=== PATIENT | male | born 1950 | race American Indian/Alaskan Native ===

== ENCOUNTER 2019-06-23 09:37 | Emergency (ER) | payer MEDICARE ==
[2019-06-23] MEDS ORDERED: SODIUM CHLORIDE 0.9% 1000 ML 1,000 ML IV ONE (10:00)
[2019-06-23] MEDS ORDERED: IBUPROFEN ORAL LIQD 100 MG/5 ML ORAL.LIQD PO ONE (10:02)
--- NOTE | 2019-06-23 10:03 | Emergency Department Report ---
ED General Adult HPI - General Chief complaint: Pain General Stated complaint: PAIN Time Seen by Provider: 06/23/19 09:59 Source: patient, family, RN/MD, EMS Mode of arrival: Stretcher Limitations: Other - History of Present Illness Initial comments: Patient is a 68-year-old -[place] male who comes to the ER via EMS today. EMS states that his family called them out because the patient is complaining of generalized pain. However, the patient has denied pain to EMS the nurse and myself. Her EMS statements were made on scene that the family did not want the patient in the home because he had been incontinent and agitated. However, the patient has been completely cooperative both on scene and in the emergency room. EMS states that the family has been seeing somebody and equals landing to place the patient in a halfway. On arrival patient's vital signs are stable he is cooperative. He denies pain. He states that he is hungry. He is frail looks older than stated age and debilitated. Patient has a history of aphasia, dementia, hyperlipidemia and schizophrenia. Patient's primary care is Dr. Walton his phone number is [phone] Patient comes with a bag of medications including the following Vitamin D3 Atorvastatin Calcium Aspirin Valproic acid at night divalproex When reviewing patient's medications since found that there are numerous bottles of the same medications that seemingly are not being given to the patient. Given his dementia he would not be able to self medicate safely. There is no family at bedside for additional information. -: Gradual Severity scale (0 -10): 0 Worsens with: none Associated Symptoms: denies other symptoms Treatments Prior to Arrival: none - Related Data Allergies Allergy/AdvReac Type Severity Reaction Status Date / Time Unable to Assess Allergy Unverified 06/23/19 10:26 ED Review of Systems ROS: Stated complaint: PAIN Other details as noted in HPI Comment: Unobtainable due to pts medical conditions ED Past Medical Hx - Past Medical History Previous Medical History?: Yes Hx Dementia: Yes Additional medical history: hpl; schizo.; dementia - Family History Family history: no significant ED Physical Exam - General Limitations: Other General appearance: alert, in no apparent distress - Head Head exam: Present: atraumatic, normocephalic - Eye Eye exam: Present: normal appearance - ENT ENT exam: Present: mucous membranes dry - Neck Neck exam: Present: normal inspection - Respiratory Respiratory exam: Present: normal lung sounds bilaterally. Absent: respiratory distress - Cardiovascular Cardiovascular Exam: Present: regular rate, normal rhythm. Absent: systolic murmur, diastolic murmur, rubs, gallop - GI/Abdominal GI/Abdominal exam: Present: soft, normal bowel sounds - Rectal Rectal exam: Present: deferred - Extremities Exam Extremities exam: Present: normal inspection - Back Exam Back exam: Present: normal inspection - Neurological Exam Neurological exam: Present: alert - Psychiatric Psychiatric exam: Present: flat affect - Skin Skin exam: Present: warm, dry, intact, normal color. Absent: rash ED Course Vital Signs 06/23/19 06/23/19 06/23/19 09:48 09:52 12:54 Pulse Rate 69 69 84 Respiratory 13 12 17 Rate Blood Pressure 125/59 125/59 123/78 [Left] O2 Sat by Pulse 97 97 97 Oximetry ED Medical Decision Making - Lab Data Result diagrams: 06/23/19 10:37 06/23/19 10:37 - Medical Decision Making case management consulted for eval. Labs 06/23/19 06/23/19 06/23/19 10:37 10:37 10:37 WBC 6.1 RBC 5.81 H Hgb 14.1 Hct 43.5 MCV 75 L MCH 24 L MCHC 33 RDW 16.3 H Plt Count 120 L Add Manual Diff Complete Total Counted 100 Seg Neuts % (Manual) 80.0 H Band Neutrophils % 2.0 Lymphocytes % (Manual) 14.0 Reactive Lymphs % (Man) 0 Monocytes % (Manual) 4.0 Eosinophils % (Manual) 0 Basophils % (Manual) 0 Metamyelocytes % 0 Myelocytes % 0 Promyelocytes % 0 Blast Cells % 0 Nucleated RBC % Not Reportable Seg Neutrophils # Man 4.9 Band Neutrophils # 0.1 Lymphocytes # (Manual) 0.9 L Abs React Lymphs (Man) 0.0 Monocytes # (Manual) 0.2 Eosinophils # (Manual) 0.0 Basophils # (Manual) 0.0 Metamyelocytes # 0.0 Myelocytes # 0.0 Promyelocytes # 0.0 Blast Cells # 0.0 WBC Morphology Not Reportable Hypersegmented Neuts Not Reportable Hyposegmented Neuts Not Reportable Hypogranular Neuts Not Reportable Smudge Cells Not Reportable Toxic Granulation Not Reportable Toxic Vacuolation Not Reportable Dohle Bodies Not Reportable Pelger-Huet Anomaly Not Reportable Vikki Rods Not Reportable Platelet Estimate Consistent w auto Clumped Platelets Not Reportable Plt Clumps, EDTA Not Reportable Large Platelets Not Reportable Giant Platelets Not Reportable Platelet Satelliting Not Reportable Plt Morphology Comment Not Reportable RBC Morphology Not Reportable Dimorphic RBCs Not Reportable Polychromasia Not Reportable Hypochromasia Not Reportable Poikilocytosis Few Anisocytosis 1+ Microcytosis Not Reportable Macrocytosis Not Reportable Spherocytes Not Reportable Pappenheimer Bodies Not Reportable Sickle Cells Not Reportable Target Cells Rare Tear Drop Cells Not Reportable Ovalocytes Not Reportable Helmet Cells Not Reportable Alvarez-Miltona Bodies Not Reportable Coolspring Rings Not Reportable Nhi Cells Not Reportable Bite Cells Not Reportable Crenated Cell Not Reportable Elliptocytes Not Reportable Acanthocytes (Spur) 1+ Rouleaux Not Reportable Hemoglobin C Crystals Not Reportable Schistocytes Few Malaria parasites Not Reportable Jorge Bodies Not Reportable Hem Pathologist Commnt No Sodium 141 Potassium 5.0 Chloride 99.0 Carbon Dioxide 22 Anion Gap 25 BUN 40 H Creatinine 1.0 Estimated GFR > 60 BUN/Creatinine Ratio 40 Glucose 202 H Calcium 9.0 Total Bilirubin 0.90 AST 179 H ALT 329 H Alkaline Phosphatase 133 H Total Protein 6.7 Albumin 3.8 L Albumin/Globulin Ratio 1.3 Valproic Acid 78.2 Vital Signs 06/23/19 06/23/19 09:48 09:52 Pulse Rate 69 69 Respiratory 13 12 Rate Blood Pressure 125/59 125/59 [Left] O2 Sat by Pulse 97 97 Oximetry labs noted vss taking po denies pain reports being hungry case briefer has talked with family who cares for pt and is arranging home health. given med count I do not think pt is getting his home meds. dc home with family after education regarding his care. Critical care attestation.: If time is entered above; I have spent that time in minutes in the direct care of this critically ill patient, excluding procedure time. ED Disposition Clinical Impression: Dementia, Need for oncology social work intervention Disposition: DC-01 TO HOME OR SELFCARE Is pt being admited?: No Does the pt Need Aspirin: No Condition: Stable Instructions: Dementia (ED) Additional Instructions: FOLLOW UP WITH PCP REFERRAL BELOW TAKE SAFETY PRECAUTIONS AT HOME TO AVOID ACCIDENTAL HARM NEEDS MEAL SUPPLEMENTS DUE TO NUTRITION STATUS ENSURE BETWEEN HIS 3 MEALS WOULD BE GOOD A DAILY OVER THE COUNTER MULTIVITAMIN SHOULD BE GIVEN FOLLOW UP WITH RESOURCES PROVIDED BY [facility] CROPS TODAY KEEP PATIENT WELL HYDRATED Referrals: PRIMARY CARE, [Primary Care Provider] - 3-5 Days ELLIOTT LAZO MD [Staff Physician] - 3-5 Days Time of Disposition: 12:45
--- NOTE | 2019-06-23 10:46 | XRay Report ---
CHEST 1 VIEW INDICATION: pain. COMPARISON: None. FINDINGS: Support devices: None. Heart: Within normal limits. Pulmonary vasculature: Normal. Lungs/Pleura: No acute air space or interstitial disease. The lungs are hyperexpanded and hyperlucent . No pneumothorax. Additional findings: Pronounced tortuosity and/or ectasia of the ascending aorta. Extensive spondylos is of the thoracic spine. IMPRESSION: 1. No CHF or pneumonia. 2. Hypertensive changes in the ascending aorta and possible aneurysm of the ascending aorta. Conside r CTA chest. Signer Name: Dandy Bruce MD Signed: 06/23/2019 10:41 AM Workstation Name: [id number]
[2019-06-23 11:18] LABS: Hematocrit 43.5 % (35.5-45.6); Hemoglobin 14.1 gm/dl (11.8-15.2); Mean Corpuscular HGB Conc 33 % (32-34); Mean Corpuscular Volume 75 fl (84-94); Platelet Count 120 K/mm3 (140-440); Red Blood Count 5.81 M/mm3 (3.65-5.03); Red Cell Distribution Width 16.3 % (13.2-15.2)
[2019-06-23 11:34] LABS: Alanine Aminotransferase 329 units/L (7-56); Albumin 3.8 g/dL (3.9-5); BUN/Creatinine Ratio 40; Blood Urea Nitrogen 40 mg/dL (9-20); Hemolysis Index 64
[2019-06-23 12:39] LABS: Anisocytosis 1+; Band Neutrophils # (Manual) 0.1 K/mm3; Basophils % (Manual) 0 % (0.0-1.8); Eosinophils % (Manual) 0 % (0.0-4.3); Poikilocytosis Few; Schistocytes Few; Target Cells Rare; Total Cells Counted 100
[2019-06-23 12:40] LABS: Platelet Estimate Consistent w Auto
[2019-06-23 12:59] VITALS: BP 123/78
== END 2019-06-23 17:25 | disposition home or self-care (01) ==
LOC: ED 09:37
DX: F03.90 Unspecified dementia, unspecified severity, without behavioral disturbance, psychotic disturbance, mood disturbance, and anxiety (principal); F20.9 Schizophrenia, unspecified
CPT/HCPCS: 36415; 71045; 80053; 80164; 85007; 85025; 99284; J7030

== ENCOUNTER 2020-04-10 12:46 | Outpatient (CLI) | payer MEDICARE ==
[2020-04-10] MEDS ORDERED: ALBUMIN HUMAN 25% (25 GM/100 ML) INJ IV PRN (14:54)
--- NOTE | 2020-04-10 14:54 | Short Stay Summary ---
Short Stay Documentation Date of service: 04/10/20 Narrative H&P: ascites - History Principal diagnosis: ascites - Allergies and Medications Current Medications: Allergies No Known Allergies Allergy (Verified 02/18/20 01:37) Home Medications Medication Instructions Recorded Confirmed Last Taken Type Ciprofloxacin HCl [Ciprofloxacin 500 mg PO Q12HR #14 tab 02/18/20 04/10/20 04/09/20 Rx TAB] 500 mg AtorvaSTATin [Lipitor] 40 mg PO QHS 03/27/20 04/10/20 04/09/20 History 40 mg Divalproex ER [DepaKOTE ER] 500 mg PO QDAY 03/27/20 04/10/20 04/09/20 History 500 mg Iron/Vitc/B12/B6/E/FA/If/Senna 1 each PO DAILY 03/27/20 04/10/20 04/09/20 History [Iro-Plex Caplet] 1 tab OLANzapine [ZyPREXA] 10 mg PO DAILY 03/27/20 04/10/20 04/09/20 History 10 mg Valproic Acid [DepaKENE] 250 mg PO DAILY 03/27/20 04/10/20 04/09/20 History 250 mg fluPHENAZine decanoate 25 mg IJ Q2W 03/27/20 04/10/20 04/09/20 History [fluPHENAZine Decanoate] 25 mg - Physical exam General appearance: mild distress, cachectic, disheveled Gastrointestinal: distended - Brief post op/procedure progress note Date of procedure: 04/10/20 Pre-op diagnosis: ascites Post-op diagnosis: same Procedure: US paracentesis Anesthesia: local Findings: moderate ascites Surgeon: DENNIS PAEZ Estimated blood loss: none Pathology: list (120cc) Specimen disposition: to lab Condition: stable - Hospital course Hospital course: uneventful - Disposition Condition at discharge: Good Disposition: DC-01 TO HOME OR SELFCARE Short Stay Discharge Plan Follow up with: PRIMARY CARE, [Primary Care Provider] - 7 Days
[2020-04-10 15:50] VITALS: BP 140/95
--- NOTE | 2020-04-10 16:30 | Ultrasound Report ---
ULTRASOUND-GUIDED PARACENTESIS HISTORY: Ascites. PROCEDURE: The risks (including but not limited to bleeding, infection, and bowel injury) and benefi ts were explained to the patient and informed consent was obtained. A time out procedure was perform ed. Ultrasound was used to evaluate the abdomen and locate the largest ascites fluid pocket. Once the sk in was marked, the procedure site was prepped and draped in the usual sterile fashion and lidocaine w as used for local anesthesia. A skin shirin was made and a 5 [place] centesis catheter was placed. The patient was monitored closely throughout the procedure, and a total of 3300 mL of clear yellow fluid was aspirated. Samples were sent to the lab for further evaluation per the primary clinicians order s. The patient tolerated the procedure well with no complications. IMPRESSION: Successful ultrasound-guided paracentesis as described. Signer Name: Parvez Major Jr, MD Signed: 04/10/2020 4:25 PM Workstation Name: [id number]
[2020-04-10 17:03] LABS: Total Cells Counted 100 /mm3
== END 2020-04-10 14:05 | disposition home or self-care (01) ==
LOC: CATHLABREC 12:46
PROVIDERS: ATTEND Internal Medicine Gastroenterology
DX: R18.8 Other ascites (principal); D64.9 Anemia, unspecified; F17.210 Nicotine dependence, cigarettes, uncomplicated; Z79.899 Other long term (current) drug therapy; Z98.890 Other specified postprocedural states
CPT/HCPCS: 49083; 82040; 84160; 87116; 88112; 88305; 88312; 88341; 88342; 89051

== ENCOUNTER 2020-05-13 02:31 | Emergency (ER) | payer MEDICARE ==
[2020-05-13] MEDS ORDERED: ASPIRIN 325 MG TAB PO ONE (03:30)
[2020-05-13 04:06] LABS: Basophils # (Auto) 0.1 K/mm3 (0.0-0.1); Basophils % (Auto) 1.8 % (0.0-1.8); Eosinophils % (Auto) 0.5 % (0.0-4.3); Hematocrit 34.9 % (35.5-45.6); Hemoglobin 11.4 gm/dl (11.8-15.2); Lymphocytes # (Auto) 1.1 K/mm3 (1.2-5.4); Lymphocytes % (Auto) 28.2 % (13.4-35.0); Mean Corpuscular HGB Conc 33 % (32-34); Mean Corpuscular Volume 77 fl (84-94); Monocytes # (Auto) 0.4 K/mm3 (0.0-0.8); Monocytes % (Auto) 11.8 % (0.0-7.3); Platelet Count 147 K/mm3 (140-440); Red Blood Count 4.55 M/mm3 (3.65-5.03); Red Cell Distribution Width 15.2 % (13.2-15.2)
[2020-05-13 04:27] LABS: BUN/Creatinine Ratio 31; Blood Urea Nitrogen 40 mg/dL (9-20); Calcium 9.1 mg/dL (8.4-10.2); Hemolysis Index 2
--- NOTE | 2020-05-13 04:28 | XRay Report ---
CHEST 1 VIEW INDICATION / CLINICAL INFORMATION: Chest Pain. COMPARISON: 06/23/2019 FINDINGS: SUPPORT DEVICES: None. HEART / MEDIASTINUM: No significant abnormality. LUNGS / PLEURA: Suboptimal inspiration. For the degree of inspiration no acute pulmonary or pleural d isease noted. No pneumothorax. ADDITIONAL FINDINGS: No significant additional findings. IMPRESSION: 1. Suboptimal inspiration. Given this slight limitation, no significant acute pulmonary or pleural di sease. Signer Name: Camila Stallworth MD Signed: 05/13/2020 4:24 AM Workstation Name: [id number]
--- NOTE | 2020-05-13 09:19 | Emergency Department Report ---
ED Chest Pain HPI - General Chief Complaint: Chest Pain Stated Complaint: ADBAMINAL Time Seen by Provider: 05/13/20 06:27 Source: patient, old records reviewed Mode of arrival: Stretcher Limitations: No Limitations - History of Present Illness Initial Comments: 69-year-old -[place] male with known history of dementia and schizophrenia presenting to the hospital with complaints of left-sided chest pain. Patient resides with his cousin Radha who expressed to triage nurse that patient felt like he was "growing another heart". Patient denies associated symptoms. - Related Data Home Medications Medication Instructions Recorded Confirmed Last Taken AtorvaSTATin [Lipitor] 40 mg PO QHS 03/27/20 04/10/20 04/09/20 40 mg Divalproex ER [DepaKOTE ER] 500 mg PO QDAY 03/27/20 04/10/20 04/09/20 500 mg Iron/Vitc/B12/B6/E/FA/If/Senna 1 each PO DAILY 03/27/20 04/10/20 04/09/20 [Iro-Plex Caplet] 1 tab OLANzapine [ZyPREXA] 10 mg PO DAILY 03/27/20 04/10/20 04/09/20 10 mg Valproic Acid [DepaKENE] 250 mg PO DAILY 03/27/20 04/10/20 04/09/20 250 mg fluPHENAZine decanoate 25 mg IJ Q2W 03/27/20 04/10/20 04/09/20 [fluPHENAZine Decanoate] 25 mg Previous Rx's Medication Instructions Recorded Last Taken Type Ciprofloxacin HCl [Ciprofloxacin 500 mg PO Q12HR #14 tab 02/18/20 04/09/20 Rx TAB] 500 mg Allergies Allergy/AdvReac Type Severity Reaction Status Date / Time No Known Allergies Allergy Verified 02/18/20 01:37 Heart Score - HEART Score History: Slightly suspicious EKG: Normal Age: > 65 Risk factors: 1-2 risk factors Troponin: < normal limit HEART Score: 3 ED Review of Systems ROS: Stated complaint: ADBAMINAL Other details as noted in HPI Comment: All other systems reviewed and negative ED Past Medical Hx - Past Medical History Previous Medical History?: Yes Hx Arthritis: No Hx Seizures: Yes Hx Psychiatric Treatment: Yes Hx Dementia: Yes Additional medical history: hpl; schizo.; dementia - Surgical History Past Surgical History?: No - Social History Smoking Status: Former Smoker Substance Use Type: None - Medications Home Medications: Home Medications Medication Instructions Recorded Confirmed Last Taken Type Ciprofloxacin HCl [Ciprofloxacin 500 mg PO Q12HR #14 tab 02/18/20 04/10/20 04/09/20 Rx TAB] 500 mg AtorvaSTATin [Lipitor] 40 mg PO QHS 03/27/20 04/10/20 04/09/20 History 40 mg Divalproex ER [DepaKOTE ER] 500 mg PO QDAY 03/27/20 04/10/20 04/09/20 History 500 mg Iron/Vitc/B12/B6/E/FA/If/Senna 1 each PO DAILY 03/27/20 04/10/20 04/09/20 History [Iro-Plex Caplet] 1 tab OLANzapine [ZyPREXA] 10 mg PO DAILY 03/27/20 04/10/20 04/09/20 History 10 mg Valproic Acid [DepaKENE] 250 mg PO DAILY 03/27/20 04/10/20 04/09/20 History 250 mg fluPHENAZine decanoate 25 mg IJ Q2W 03/27/20 04/10/20 04/09/20 History [fluPHENAZine Decanoate] 25 mg ED Physical Exam - General Limitations: No Limitations - Other Other exam information: General: No acute distress Head: Atraumatic Eyes: normal appearance ENT: Moist mucous membranes Neck: Normal appearance, no midline tenderness Chest: Clear to auscultation bilaterally CV: Regular rate and rhythm Abdomen: Soft, normal bowel sounds, nontender, nondistended, no rebound or guard ing, PEG tube Back: Normal inspection Extremity: Normal inspection, full range of motion Neuro: Alert O x 3, no facial asymmetry, speech clear, no gross motor sensory deficit Psych: Appropriate behavior Skin: No rash ED Course Vital Signs 05/13/20 05/13/20 05/13/20 03:16 05:30 09:57 Temperature 97.6 F Pulse Rate 58 L 54 L Respiratory 18 18 16 Rate Blood Pressure 137/75 143/56 O2 Sat by Pulse 98 100 Oximetry - Reevaluation(s) Reevaluation #1: 05/13/20 09:15 I spoke to family member and automation control integrator Radha Kiel who states she sent patient to the ER due to complaints of chest pain. She states he chronically complains about abdominal pain irritation secondary to NG tube. She they have been going to a GI doctor as outpatient for recurrent paracentesis. She is inquiring about G-tube removal. I informed her that she will have to discuss this with her GI doctor. I informed her that patient will be discharged home and he appears to have mild dehydration and therefore to encourage fluid and food intake AMRIANO score - Mariano Score Age > 65: (0) No Aspirin use within the Past 7 Days: (0) No 3 or more CAD Risk Factors: (0) No 2 or more Angina events in past 24 hrs: (0) No Known CAD with more than 50% Stenosis: (0) No Elevated Cardiac Markers: (0) No ST Deviation Greater than 0.5mm: (0) No MARIANO Score: 0 ED Medical Decision Making - Lab Data Result diagrams: 05/13/20 03:47 05/13/20 03:47 Lab Results 05/13/20 05/13/20 05/13/20 Range/Units 03:47 03:47 08:19 WBC 3.8 L (4.5-11.0) K/mm3 RBC 4.55 (3.65-5.03) M/mm3 Hgb 11.4 L (11.8-15.2) gm/dl Hct 34.9 L (35.5-45.6) % MCV 77 L (84-94) fl MCH 25 L (28-32) pg MCHC 33 (32-34) % RDW 15.2 (13.2-15.2) % Plt Count 147 (140-440) K/mm3 Lymph % (Auto) 28.2 (13.4-35.0) % [place] % (Auto) 11.8 H (0.0-7.3) % Eos % (Auto) 0.5 (0.0-4.3) % Baso % (Auto) 1.8 (0.0-1.8) % Lymph # (Auto) 1.1 L (1.2-5.4) K/mm3 [place] # (Auto) 0.4 (0.0-0.8) K/mm3 Eos # (Auto) 0.0 (0.0-0.4) K/mm3 Baso # (Auto) 0.1 (0.0-0.1) K/mm3 Seg Neutrophils % 57.7 (40.0-70.0) % Seg Neutrophils # 2.2 (1.8-7.7) K/mm3 Sodium 143 (137-145) mmol/L Potassium 4.0 (3.6-5.0) mmol/L Chloride 104.8 (98-107) mmol/L Carbon Dioxide 27 (22-30) mmol/L Anion Gap 15 mmol/L BUN 40 H (9-20) mg/dL Creatinine 1.3 (0.8-1.3) mg/dL Estimated GFR > 60 ml/min BUN/Creatinine Ratio 31 % Glucose 119 H (75-100) mg/dL Calcium 9.1 (8.4-10.2) mg/dL Troponin T 0.011 < 0.010 (0.00-0.029) ng/mL - EKG Data -: EKG Interpreted by Me EKG shows normal: sinus rhythm, ST-T waves Rate: normal - Radiology Data Radiology results: report reviewed CHEST 1 VIEW INDICATION / CLINICAL INFORMATION: Chest Pain. COMPARISON: 06/23/2019 FINDINGS: SUPPORT DEVICES: None. HEART / MEDIASTINUM: No significant abnormality. LUNGS / PLEURA: Suboptimal inspiration. For the degree of inspiration no acute pulmonary or pleural disease noted. No pneumothorax. ADDITIONAL FINDINGS: No significant additional findings. IMPRESSION: 1. Suboptimal inspiration. Given this slight limitation, no significant acute pulmonary or pleural disease. - Medical Decision Making 69-year-old male with complaints of chest pain prior to ED arrival not exhibiting pain while in the ED. EKG normal without acute changes x2. Troponin negative x2. Patient constantly walking around the ER requesting food and was provided several meals to eat. Case discussed with his automation control integrator and patient will be discharged home with follow-up encouraged Critical Care Time: No Critical care attestation.: If time is entered above; I have spent that time in minutes in the direct care of this critically ill patient, excluding procedure time. ED Disposition Clinical Impression: Atypical chest pain Disposition: DC-01 TO HOME OR SELFCARE Is pt being admited?: No Does the pt Need Aspirin: No Condition: Stable Instructions: Chest Pain (ED), Nonspecific Chest Pain, Adult Additional Instructions: Take Tylenol or Motrin as needed for pain. Drink plenty of fluids. Follow-up with your doctor or doctor/clinic provided. Return if symptoms worsen as indicated by your discharge instructions. Referrals: PRIMARY CARE, [Primary Care Provider] - 3-5 Days MILTON FRAGA MD [Staff Physician] - 3-5 Days (Primary care doctor) Time of Disposition: 10:13
[2020-05-13 10:03] VITALS: BP 143/56
== END 2020-05-13 11:45 | disposition home or self-care (01) ==
LOC: ED 02:31
DX: R07.89 Other chest pain (principal); F20.89 Other schizophrenia; F03.90 Unspecified dementia, unspecified severity, without behavioral disturbance, psychotic disturbance, mood disturbance, and anxiety; Z87.891 Personal history of nicotine dependence; Z79.899 Other long term (current) drug therapy
CPT/HCPCS: 36415; 71045; 80048; 84484; 85025; 93005